=== PATIENT | female | born 1935 | race Native Hawaiian/Other Pacific Islander ===

== ENCOUNTER → 2025-02-20 | Outpatient (CLI) | payer MEDICARE, MEDICAID, SELFPAY ==
--- NOTE | 2025-02-20 14:30 | XR_ITS ---
Examination: Retroperitoneal ultrasound, complete Technique: Multiple high resolution grayscale images of the retroperitoneum obtained, including kidneys and bladder. Exam date and time:06/22/2025 1452 hours INDICATIONS: Diagnosis chronic kidney disease stage III FINDINGS: Right kidney 8.4 cm cortex 1.8 cm Upper pole 11 mm cyst Left kidney 9.7 cm cortex 1.6 cm 15 mm upper pole cyst. 12 mm calculus upper pole Contracted urinary bladder IMPRESSION: Small kidneys with renal cortical thinning Moderate bilateral renal parenchymal scar formation 12 mm left renal calculus
== END | disposition home or self-care (01) ==
PROVIDERS: PCP Specialist; Referring Provider Internal Medicine Nephrology; Visit Provider Internal Medicine Nephrology
DX: N20.0 Calculus of kidney (principal); N18.32 Chronic kidney disease, stage 3b; N32.89 Other specified disorders of bladder; N28.1 Cyst of kidney, acquired
CPT/HCPCS: 76770

== ENCOUNTER → 2025-03-16 | Outpatient (BNVA) | payer MEDICARE, MEDICAID, SELFPAY | END | disposition home or self-care (01) | PROVIDERS: PCP Specialist; Referring Provider Specialist; Visit Provider Urology | DX: N20.0 Calculus of kidney (principal); Z87.440 Personal history of urinary (tract) infections; I12.9 Hypertensive chronic kidney disease with stage 1 through stage 4 chronic kidney disease, or unspecified chronic kidney disease; N18.30 Chronic kidney disease, stage 3 unspecified; N27.1 Small kidney, bilateral; M06.9 Rheumatoid arthritis, unspecified; M25.561 Pain in right knee | CPT/HCPCS: 81003; 99213; G0463 ==

== ENCOUNTER → 2025-05-02 | Outpatient (CLI) | payer MEDICARE, MEDICAID, SELFPAY ==
--- NOTE | 2025-05-02 15:00 | XR_ITS ---
Examination: CT abdomen and pelvis without contrast. Coronal 3-D reconstructions. Sagittal 2-D reconstructions. Date and time of exam:May 02, 2025, 1437 hours INDICATIONS: 12 mm left renal calculus Renal sonography December 21, 2024 CTDI: vol (mGy): 7.22 DLP: (mGycm): 345 Technique: Axial images of the abdomen have been obtained, 3 mm slice thickness Intravenous contrast material has not been administered. Low dose protocols were performed. One or more of the following dose reduction techniques were used; automated exposure control, adjustment of the mA and/or KV according to patient size, use of iterative reconstruction technique. Findings: Liver is irregular in contour, no focal liver lesions No gallstones Spleen is not enlarged No pancreatic or adrenal mass 6 mm upper pole right renal calculus Mild renal scar formation, no hydronephrosis Abdominal aortic calcification no aneurysmal dilatation Normal appendix. No bowel obstruction Atrophic calcified uterus No bladder mass or bladder calculi Severe osteopenia, chronic osteoporotic compression L3 Advanced disc narrowing L4-L5 IMPRESSION: Suspect primary hepatocellular disease 6 mm nonobstructing right renal calculus Mild renal parenchymal scar formation, no hydronephrosis
== END | disposition home or self-care (01) ==
PROVIDERS: PCP Urology; Referring Provider Urology; Visit Provider Urology
DX: N20.0 Calculus of kidney (principal); N28.89 Other specified disorders of kidney and ureter
CPT/HCPCS: 74176

== ENCOUNTER → 2025-07-17 | Outpatient (BNVA) | payer MEDICARE, MEDICAID, SELFPAY | END | disposition home or self-care (01) | PROVIDERS: PCP Specialist; Referring Provider Specialist; Visit Provider Urology | DX: N20.0 Calculus of kidney (principal); I12.9 Hypertensive chronic kidney disease with stage 1 through stage 4 chronic kidney disease, or unspecified chronic kidney disease; N18.30 Chronic kidney disease, stage 3 unspecified; Z87.440 Personal history of urinary (tract) infections; N28.89 Other specified disorders of kidney and ureter; M06.9 Rheumatoid arthritis, unspecified; M25.561 Pain in right knee | CPT/HCPCS: 81003; 99213; G0463 ==